=== PATIENT | female | born 1970 | race Caucasian/White ===

== ENCOUNTER 2020-01-25 11:52 | Emergency (ER) | payer BC ==
[2020-01-25] MEDS ORDERED: DIAZEPAM 10 MG/2 ML INJ SYRINGE ONE (13:29)
[2020-01-25] MEDS ORDERED: MECLIZINE HCL 12.5 MG TAB ONE (13:30)
[2020-01-25] MEDS ORDERED: ONDANSETRON 4 MG/2 ML VIAL ONE (13:30)
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
[2020-01-25 15:10] VITALS: TEMP 99
[2020-01-25 15:11] VITALS: BP 136/77; O2SAT 100
== END 2020-01-25 15:04 | disposition home or self-care (01) ==
LOC: ER 11:52
DX: F07.81 Postconcussional syndrome (principal); R07.89 Other chest pain; F17.210 Nicotine dependence, cigarettes, uncomplicated; V86.95XA Unspecified occupant of 3- or 4- wheeled all-terrain vehicle (ATV) injured in nontraffic accident, initial encounter; Z88.5 Allergy status to narcotic agent
CPT/HCPCS: 70450; 71250; 72125; 96375; 96374; 99284; J3360; J2405; J8597

== ENCOUNTER 2020-01-28 09:27 | Emergency (ER) | payer BC ==
[2020-01-28] MEDS ORDERED: DIAZEPAM 5 MG TABLET ONE (09:55)
[2020-01-28] MEDS ORDERED: FENTANYL CITR 100 MCG/2 ML ONE (09:55)
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
[2020-01-28 11:29] VITALS: BP 110/88; O2SAT 95
[2020-01-28 11:30] VITALS: TEMP 98.4
== END 2020-01-28 11:11 | disposition home or self-care (01) ==
LOC: ER 09:27
DX: M94.0 Chondrocostal junction syndrome [Tietze] (principal); V86.95XA Unspecified occupant of 3- or 4- wheeled all-terrain vehicle (ATV) injured in nontraffic accident, initial encounter; Z88.5 Allergy status to narcotic agent
CPT/HCPCS: 71046; 96372; 99283; J3010